=== PATIENT | female | born 1955 | race African-American/Black ===

== ENCOUNTER → 2018-09-30 17:27 | Outpatient (CLI) | payer MEDICAID | END | disposition home or self-care (01) | LOC: D.MAMMO 10:00 | DX: Z12.31 Encounter for screening mammogram for malignant neoplasm of breast (principal) ==

== ENCOUNTER → 2019-08-27 08:01 | Outpatient (CLI) | payer MEDICAID ==
--- NOTE | 2019-09-02 14:07 | ST ---
PATIENT:MAURI HENNESSY MEDICAL RECORD: [id number] SEX: F LOCATION:[facility] ORDER #: ADMISSION DATE: 08/27/19 AGE OF PATIENT: 63 REFERRING PHYSICIAN: INTERPRETING PHYSICIAN: VANE MCDANIEL MD DATE OF SERVICE: 08/27/2019 PROCEDURE: Nuclear stress test. INDICATION: Angina, abnormal ECG, hypertension. TECHNIQUE: The patient was exercised on standard Segundo protocol for 7 minutes and 45 seconds achieving 85% max target heart rate response with 33 mCi of sestamibi injected at peak stress, 11 mCi used previously for rest images. FINDINGS: Gated SPECT reveals preserved ejection fraction at 70% with good wall motion and thickening and brightening throughout all segments. SPECT imaging Cardiolite was used as myocardial fusion agent. There is homogeneous uptake throughout all segments at rest and stress with no evidence of inducible ischemia or previous infarction. OVERALL IMPRESSION: 1. This is a normal nuclear stress test with no evidence of inducible ischemia or previous infarction. 2. Gated SPECT reveals a preserved ejection fraction at 70%. In this patient with ongoing symptomatology, the current scan does not suggest the presence of hemodynamically significant coronary artery disease. Evaluate noncardiac etiology of chest pain. TRANSINT:[id number] Voice Confirmation ID: [id number] DOCUMENT ID: [id number] VANE MCDANIEL MD at 1407 CC: [id number] DICTATION DATE: 08/28/19 1452 [place] HISTORY PROFESSOR: 08/29/19 0752 DEP CLI 08/27/19 [place] [id number]
--- NOTE | 2019-09-08 16:04 | EC ---
PATIENT:MAURI HENNESSY DATE OF SERVICE: 08/27/19 SEX: F MEDICAL RECORD: [id number] DATE OF : 55 [facility] AGE OF PATIENT: 63 ADMISSION DATE: 08/27/19 REFERRING PHYSICIAN: INTERPRETING PHYSICIAN: DWAINE SEGURA MD ECHOCARDIOGRAM REPORT ECHO CHARGES 4 ECHO COMPLETE Date: 08/27/19 CLINICAL DIAGNOSIS: ANGINA/ABNORAML EKG/HTN ECHOCARDIOGRAPHIC MEASUREMENTS (adult normal given) AC root (d.<3.7cm) 2.6 cm LV Septum d (<1.2 cm> 1.1 cm Valve Excursion 1.8 cm LV Septum (systole) 1.8 cm Left Atria (s.<4.0cm> 3.5 cm LVPW d(<1.2cm) 1.1 cm RV (d.<2.3cm) 2.2 cm LVPW (sytole) 1.6 cm LV diastole(<5.6CM) 4.5 cm MV E-F(>70mm/sec) cm LV systole 2.2 cm LVOT Diameter 1.8 cm MV exc.(>10mm) cm Est.ejection fraction (50-75%) % DOPPLER: LVIT cm/sec A 59.0 cm/sec E 102 cm/sec LA cm/sec RVSP 16.0 mmHg LVOT 132 cm/sec AOP1/2T m/s Asc. Ao 137 cm/sec RVOT 60.0 cm/sec RA cm/sec PA 87.0 cm/sec AV Gradient Peak 7.6 mmHg AV Mean 3.6 mmHg AV Area 2.2 cm MV Gradient Peak 4.8 mmHg MV Mean 1.7 mmHg MV Area cm COMMENTS: OP - HC Delivery Route Driver: Herb VELEZ DESHAUN Patient Services Assistant: 3 Dr. Anguiano TAPE# PACS Pericardial Effusion N DATE OF SERVICE: Adequate 2D, color flow imaging, spectral Doppler, and M-Mode No LVH. LV internal dimension is normal. Wall motion is normal. EF is greater than or equal to 55%. Aortic valve is tricuspid. No evidence of stenosis by Doppler interrogation. Left atrium is normal at 3.5 cm. Mitral valve shows no prolapse. Trace MR. Right-sided chambers are grossly normal. Trace TR. TRANSINT:[id number] Voice Confirmation ID: [id number] DOCUMENT ID: [id number] ECHOCARDIOGRAM REPORT [id number] MAURI HENNESSY,DWAINE Montanez MD at 1604 CC: [id number] DICTATION DATE: 09/08/19 1259 DELIVERY AND INSTALLATION SUBCONTRACTOR: 09/08/19 1343 DEP CLI 08/27/19 [place] [id number] [place] [id number]
== END | disposition home or self-care (01) ==
LOC: D.HCCECHO 08:01
PROVIDERS: ATTEND Internal Medicine Interventional Cardiology
DX: I20.9 Angina pectoris, unspecified (principal); R94.31 Abnormal electrocardiogram [ECG] [EKG]